=== PATIENT | male | born 1995 | race Caucasian/White ===

== ENCOUNTER 2022-11-01 22:21 | Emergency (ER) | payer OTHER ==
[2022-11-01 22:30] VITALS: BP 157/92; PULSE 98; RESP 16; TEMP 99; BMI 25.7
== END 2022-11-01 23:05 | disposition home or self-care (01) ==
LOC: FER 22:21
PROC: 0HQ0XZZ Repair Scalp Skin, External Approach (ICD-10-PCS; principal; 2022-11-01)
DX: S01.01XA Laceration without foreign body of scalp, initial encounter (principal); W22.8XXA Striking against or struck by other objects, initial encounter; W25.XXXA Contact with sharp glass, initial encounter; Y00.XXXA Assault by blunt object, initial encounter
CPT/HCPCS: 99282-25